=== PATIENT | female | born 1995 | race Caucasian/White ===

== ENCOUNTER 2019-12-05 00:31 | Emergency (ER) | payer SELFPAY ==
[2019-12-05 01:27] LABS: APPEARANCE,URINE CLEAR; BILIRUBIN,URINE NEGATIVE (NEGATIVE); GLUCOSE, URINE NEGATIVE (NEGATIVE); KETONES,URINE NEGATIVE (NEGATIVE); LEUKOCYTE ESTERASE,URINE LARGE (NEGATIVE); NITRITE,URINE NEGATIVE (NEGATIVE); PROTEIN,URINE 100 mg/dL (NEGATIVE); URINE SPECIFIC GRAVITY 1.005; UROBILINOGEN,URINE NEGATIVE mg/dL (<2.0)
[2019-12-05 01:28] LABS: COLOR,URINE RED
[2019-12-05] MEDS ORDERED: PHENAZOPYRIDINE HCL 100 MG TABLET PO ONE (02:42)
[2019-12-05] MEDS ORDERED: CEPHALEXIN 500 MG CAPSULE PO ONE (02:42)
--- NOTE | 2019-12-05 02:44 | ER Document Report ---
HPI - HPI Time Seen by Provider: 12/05/19 02:37 Pain Level: 0 Context: Patient is a 24-year-old female that comes emergency department for chief complaint of painful urination, blood in the urine, cramping in the lower abdomen. She reports vague lower back pain but this is nonspecific, on both sides. She denies nausea, vomiting, fever. She states she was recently and now sexually active. She denies vaginal bleeding or discharge. She denies any other complaints. Past Medical History - General Information source: Patient - Social History Smoking Status: Never Smoker Chew tobacco use (# tins/day): No Frequency of alcohol use: Occasional Drug Abuse: None Lives with: Family Family History: Reviewed & Not Pertinent Patient has homicidal ideation: No - Medical History Medical History: Negative Surgical Hx: Negative - Immunizations Immunizations up to date: Yes Hx Diphtheria, Pertussis, Tetanus Vaccination: Yes Vertical Provider Document - CONSTITUTIONAL General Appearance: WD/WN, No Apparent Distress - HEENT HEENT: Atraumatic, Normocephalic - NECK Neck: Normal Inspection - RESPIRATORY Respiratory: Breath Sounds Normal, No Respiratory Distress - CARDIOVASCULAR Cardiovascular: Regular Rate, Regular Rhythm. negative: Tachycardia - Patient i s not tachycardic on my exam - GI/ABDOMEN Gastrointestinal: Abdomen Soft, Abdomen Non-Tender. negative: Abdomen Tender - BACK Back: Normal Inspection - MUSCULOSKELETAL/EXTREMETIES Musculoskeletal/Extremeties: MAEW, FROM, Non-Tender - NEURO Level of Consciousness: Awake, Alert, Appropriate - DERM Integumentary: Warm, Dry, No Rash Course - Re-evaluation Re-evalutation: Patient has no CVA tenderness, fever, and she has cramping in the suprapubic area. She has no tenderness on abdominal exam. She has no vaginal discharge or concerns for STD. Overall evaluation is most consistent with cystitis. Started on antibiotics, culture placed, discussed expectations and return precautions. Patient states understanding and agreement. - Vital Signs Vital signs: Temp Pulse Resp BP Pulse Ox 98.8 F 102 H 16 103/77 100 12/05/19 01:03 12/05/19 00:39 12/05/19 00:39 12/05/19 00:39 12/05/19 00:39 - Laboratory Laboratory results interpreted by me: 12/05/19 00:43 Urine Protein 100 H Urine Blood LARGE H Ur Leukocyte Esterase LARGE H Discharge - Discharge Clinical Impression: Dysuria Urinary tract infection Qualifiers: Urinary tract infection type: site unspecified Hematuria presence: with hematuria Qualified Code(s): N39.0 - Urinary tract infection, site not specified Condition: Stable Disposition: HOME, SELF-CARE Additional Instructions: Your evaluation is consistent with cystitis, a bladder infection. Take the antibiotics as prescribed to completion. Follow-up with primary care. Return for any concerning or worsening symptoms including nausea/vomiting, fev er/chills, or any other concerning or worsening symptoms. Prescriptions: Cephalexin Monohydrate [Keflex 500 mg Capsule] 500 mg PO BID 7 Days #14 capsule
[2019-12-05 03:04] VITALS: BP 133/80
== END 2019-12-05 03:03 | disposition home or self-care (01) ==
LOC: ER 00:31
DX: N39.0 Urinary tract infection, site not specified (principal); R30.0 Dysuria; R30.9 Painful micturition, unspecified; R31.9 Hematuria, unspecified; R10.30 Lower abdominal pain, unspecified; M54.5 Low back pain
CPT/HCPCS: 99283; 36415; 87086; 81025; 87088; 81001; J3490; 87186